=== PATIENT | female | born 1965 | race African-American/Black ===

== ENCOUNTER 2016-10-23 05:18 | Inpatient (IN) | payer MEDICARE, OTHER ==
--- NOTE | ~2016-10-23 | HP ---
History And Physical [address] [address] NAME: EKATERINA BARNES : [birth year] STATUS : ADM IN [facility]#: [id number] AGE: 51 ADM/REG DATE : 10/23/16 MR#: [id number] REPORT SERV DATE: 10/23/16 DICTATED BY: DATE: REPORT STATUS : Draft TRANSCRIBED BY: MODL DATE: 10/23/16 DATE OF ADMISSION: 10/23/2016 REASON FOR ADMISSION: Abscess, buttocks and perineal region. HISTORY OF PRESENT ILLNESS: Ms. Barnes is a 51-year-old black female with hidradenitis suppurativa; diabetes, multiple complications including retinopathy; end-stage renal disease, on dialysis, who presents to the emergency department with abscess, she states that started during her last hospitalization at [place]. She describes them as decubitus that her abscess on her buttocks is not in a pressure region, it is actually a subcutaneous abscess that starts on her right buttock and extends down into her labia, and then she has in the right perineal region and abscess there, I am not sure if that does extend all the way up from the other. Significant tenderness, no drainage. She denies any fevers or chills, just significant pain. No nausea, vomiting. No shortness of breath. White blood cell count is normal. She is not having any fever here. PAST MEDICAL HISTORY: Includes a recent hospitalization at [place] for altered mental status. Medications were changed and Psychiatry evaluation during the hospital stay. She has end-stage renal disease; type 2 diabetes; blind with retinopathy; hidradenitis; coronary artery disease; PAT; COPD; decubitus; atrial fibrillation, status post ablation; GI bleeding; and cholecystectomy. SOCIAL HISTORY: She is with supportive family. No tobacco or alcohol. FAMILY MEDICAL HISTORY: Strongly positive for end-stage renal disease, diabetes, and hypertension. ALLERGIES: HYDROCODONE, SYNTHROID, AND FISH PRODUCTS. MEDICATIONS AT HOME: Albuterol, Astepro, vitamin B, Rocaltrol, Tums, cefdinir, Klonopin, erythromycin, Neurontin, Imdur, Fosrenol, Toprol, Nitrostat, Protonix, promethazine, Zoloft, Ultram, and Coumadin. REVIEW OF SYSTEMS: 12-point review of systems obtained and negative with the exception of that in the HPI. PHYSICAL EXAMINATION: VITAL SIGNS: Temperature 98.1, blood pressure 146/63, pulse 93, respiratory rate 14, O2 saturation is 99%. GENERAL: This is a chronically ill-appearing black female. She is awake, alert, and oriented to self and place. HEENT: Normocephalic, atraumatic. Conjunctivae are clear. Sclerae are anicteric. Oral mucosa is dry. NECK: No lymphadenopathy. Neck veins flat. LUNGS: Respirations are even and unlabored. Breath sounds clear to auscultation. HEART: Rate is regular. No murmur, rub, or gallop. History And Physical [address] [address] NAME: EKATERINA BARNES : [birth year] STATUS : ADM IN [facility]#: [id number] AGE: 51 ADM/REG DATE : 10/23/16 MR#: [id number] REPORT SERV DATE: 10/23/16 DICTATED BY: DATE: REPORT STATUS : Draft TRANSCRIBED BY: HERACLIO DATE: 10/23/16 ABDOMEN: Soft and nontender. GENITALIA: To the right buttock, she has an abscess on the right side with significant tenderness. I am not sure that it does not extend and as on her right labia, there is also an abscess as well. EXTREMITIES: Lower extremities, no edema. SKIN: As above. NEURO: Generalized weakness. No focal deficits. Mood and affect, pleasant and appropriate. PERTINENT LABS AND X-RAYS: CBC with WBC 8.3, H and H 10 and 33, and platelets 224,000. Sodium 137, potassium 4.2, chloride 101, CO2 of 28, BUN of 60, creatinine of 9.6. Magnesium 2. Albumin of 2.3. IMAGING: She had a CT of the pelvis in the emergency room which showed subcutaneous tissue of the right buttock with low density consistent with subcutaneous abscess measuring 8 cm x 6 cm and an abscess surrounded by induration tracks medially to the cleft and extends to the perineum and the region of the anus, and there 2 or 3 focal areas, have appearance of ulceration versus skin folds. An area of induration in the right anterior abdominal wall measuring 7 x 5 x 1. IMPRESSION: 1. Buttock abscess. 2. Perineal abscess. 3. End-stage renal disease. 4. Diabetes. 5. Blindness. 6. Hidradenitis suppurativa. PLAN: Admit; antibiotics; surgical consult; dialysis today; check INR as it has not been done and she is on Coumadin; pain medicine. Further orders and recommendations pending clinical course. MALIK/HERACLIO DAHLIA Spencer / [id number] CC: Raad Pastor M.D.
--- NOTE | ~2016-10-23 | EGD ---
EGD REPORT [facility] [address] [place]. [address] NAME: NICOLE HARDING : [birth year] STATUS : DIS IN PAT#: [id number] AGE: 51 ADM/REG DATE : 10/23/16 MR#: [id number] REPORT SERV DATE: 11/14/16 DICTATED BY: IAIN GIFFORD DATE: 11/14/16 REPORT STATUS : Draft [facility]ANS[facility]IBED BY: [facility] DATE: 11/14/16 Endoscopy Center Patient Name: Nicole Harding Date of : 1965 Attending MD: IAIN GIFFORD MD Procedure Date No Time: 11/04/2016 Procedure: Colonoscopy Indications: Anemia Referring MD: JADIEL BARBOZA Medicines: Propofol per Anesthesia Complications: No immediate complications. Procedure: Pre-Anesthesia Assessment: - ASA Grade Assessment: IV - A patient with severe systemic disease that is a constant threat to life. After I obtained informed consent, the scope was passed under direct vision. Throughout the procedure, the patient's blood pressure, pulse, and oxygen saturations were monitored continuously. The CF [id number] was introduced through the anus and advanced to the cecum, identified by appendiceal orifice and ileocecal valve. The colonoscopy was performed without difficulty. The patient tolerated the procedure well. The quality of the bowel preparation was fair. Findings: The perianal exam was abnormal. Findings include multiple absesses around the anus. The colon (entire examined portion) appeared normal. A moderate amount of semi-solid stool was found in the ascending colon and in the cecum, interfering with visualization. Lavage of the area was performed using copious amounts of sterile water, resulting in incomplete clearance with continued poor visualization. A sessile polyp was found in the cecum. The polyp was 4 mm in size. The polyp was removed with a hot snare. Resection and retrieval were complete. Non-bleeding internal hemorrhoids were found during retroflexion and were mild, small and Grade I (internal hemorrhoids that do not prolapse). A hyperplastic polyp was found in the rectum. The polyp was 2 mm in size. Impression: - Multiple absesses around the anus found on perianal exam. - The entire examined colon is normal. - Stool in the ascending colon and in the cecum. - One 4 mm polyp in the cecum. Resected and retrieved. - Non-bleeding internal hemorrhoids. EGD REPORT [address] [address] NAME: NICOLE HARDING : [birth year] STATUS : DIS IN PAT#: [id number] AGE: 51 ADM/REG DATE : 10/23/16 MR#: [id number] REPORT SERV DATE: 11/14/16 DICTATED BY: IAIN GIFFORD DATE: 11/14/16 REPORT STATUS : Draft TRANSCRIBED BY: [employer] DATE: 11/14/16 - One 2 mm polyp in the rectum. - The bleeding was probably from the abscesses. Doubt it was from the hemorrhoids or polyps seen. Recommendation: - Await pathology results. - Return to previous diet. - Continue present medications. - Repeat colonoscopy in 1 year because the bowel preparation was suboptimal. - [facility]. Procedure Code(s): --- Professional --- 36152, Colonoscopy, flexible, proximal to splenic flexure; with removal of tumor(s), polyp(s), or other lesion(s) by snare technique Diagnosis Code(s): --- Professional --- K64.0, First degree hemorrhoids K62.1, Rectal polyp D12.0, Benign neoplasm of cecum D64.9, Anemia, unspecified CPT copyright 2013 [employer]. All rights reserved. The codes documented in this report are preliminary and upon racing board marker review may be revised to meet current compliance requirements. Iain Gifford MD IAIN GIFFORD MD 11/04/2016 11:18 AM This report has been signed electronically. Number of Addenda: 0 Note Initiated On: 11/04/2016 9:08 AM Scope Withdrawal Time 0 hours 9 minutes 52 seconds [address] [place] [address]
--- NOTE | ~2016-10-23 | EGD ---
EGD REPORT [facility] [address] [place] [address] NAME: NICOLE HARDING : [birth year] STATUS : DIS IN PAT#: [id number] AGE: 51 ADM/REG DATE : 10/23/16 MR#: [id number] REPORT SERV DATE: 11/14/16 DICTATED BY: IAIN GIFFORD DATE: 11/14/16 REPORT STATUS : Draft [facility] DATE: 11/14/16 Endoscopy Center Patient Name: Nicole Harding Date of : 1965 Attending MD: IAIN GIFFORD MD Procedure Date No Time: 11/04/2016 Procedure: Colonoscopy Indications: Anemia Referring MD: JADIEL BARBOZA Medicines: Propofol per Anesthesia Complications: No immediate complications. Procedure: Pre-Anesthesia Assessment: - ASA Grade Assessment: IV - A patient with severe systemic disease that is a constant threat to life. After I obtained informed consent, the scope was passed under direct vision. Throughout the procedure, the patient's blood pressure, pulse, and oxygen saturations were monitored continuously. The CF [id number] was introduced through the anus and advanced to the cecum, identified by appendiceal orifice and ileocecal valve. The colonoscopy was performed without difficulty. The patient tolerated the procedure well. The quality of the bowel preparation was fair. Findings: The perianal exam was abnormal. Findings include multiple absesses around the anus. The colon (entire examined portion) appeared normal. A moderate amount of semi-solid stool was found in the ascending colon and in the cecum, interfering with visualization. Lavage of the area was performed using copious amounts of sterile water, resulting in incomplete clearance with continued poor visualization. A sessile polyp was found in the cecum. The polyp was 4 mm in size. The polyp was removed with a hot snare. Resection and retrieval were complete. Non-bleeding internal hemorrhoids were found during retroflexion and were mild, small and Grade I (internal hemorrhoids that do not prolapse). A hyperplastic polyp was found in the rectum. The polyp was 2 mm in size. Impression: - Multiple absesses around the anus found on perianal exam. - The entire examined colon is normal. - Stool in the ascending colon and in the cecum. - One 4 mm polyp in the cecum. Resected and retrieved. - Non-bleeding internal hemorrhoids. EGD REPORT [address] [address] NAME: NCIOLE HARDING : [birth year] STATUS : DIS IN PAT#: [id number] AGE: 51 ADM/REG DATE : 10/23/16 MR#: [id number] REPORT SERV DATE: 11/14/16 DICTATED BY: IAIN GIFFORD DATE: 11/14/16 REPORT STATUS : Draft TRANSCRIBED BY: [employer] DATE: 11/14/16 - One 2 mm polyp in the rectum. - The bleeding was probably from the abscesses. Doubt it was from the hemorrhoids or polyps seen. Recommendation: - Await pathology results. - Return to previous diet. - Continue present medications. - Repeat colonoscopy in 1 year because the bowel preparation was suboptimal. - Return patient to [facility] care. Procedure Code(s): --- Professional --- 92369, Colonoscopy, flexible, proximal to splenic flexure; with removal of tumor(s), polyp(s), or other lesion(s) by snare technique Diagnosis Code(s): --- Professional --- K64.0, First degree hemorrhoids K62.1, Rectal polyp D12.0, Benign neoplasm of cecum D64.9, Anemia, unspecified CPT copyright 2013 [employer]. All rights reserved. The codes documented in this report are preliminary and upon surgical coder review may be revised to meet current compliance requirements. Iain Gifford MD IAIN GIFFORD MD 11/04/2016 11:18 AM This report has been signed electronically. Number of Addenda: 0 Note Initiated On: 11/04/2016 9:08 AM Scope Withdrawal Time 0 hours 9 minutes 52 seconds [address] [place] [address]
--- NOTE | ~2016-10-23 | EGD ---
EGD REPORT [facility] [address] [address] NAME: NICOLE HARDING : [birth year] STATUS : DIS IN PAT#: [id number] AGE: 51 ADM/REG DATE : 10/23/16 MR#: [id number] REPORT SERV DATE: 11/14/16 DICTATED BY: IAIN GIFFORD DATE: 11/14/16 REPORT STATUS : Draft [facility]: [facility] DATE: 11/14/16 Endoscopy Center Patient Name: Nicole Harding Date of : 1965 Attending MD: IAIN GIFFORD MD Procedure Date No Time: 11/04/2016 Procedure: Upper GI endoscopy Indications: Anemia Referring MD: SIRI SUTTON Medicines: Propofol per Anesthesia Complications: No immediate complications. Procedure: Pre-Anesthesia Assessment: - ASA Grade Assessment: IV - A patient with severe systemic disease that is a constant threat to life. After obtaining informed consent, the endoscope was passed under direct vision. Throughout the procedure, the patient's blood pressure, pulse, and oxygen saturations were monitored continuously. The GIF [id number] was introduced through the mouth, and advanced to the third part of duodenum. The upper GI endoscopy was accomplished without difficulty. The patient tolerated the procedure well. Findings: The examined esophagus was normal. A small hiatus hernia was present. as seen on retroflexion Diffuse mild inflammation characterized by congestion (edema) and erythema was found in the entire examined stomach. Multiple small sessile polyps with no bleeding and no stigmata of recent bleeding were found in the gastric body and in the gastric antrum. A few medium-sized sessile polyps with no bleeding were found in the duodenal bulb. A single 20 mm sessile polyp with no bleeding was found in the second part of the duodenum. Very near the ampulla. The polyp was removed with a hot snare. Resection was complete, but the polyp tissue was only partially retrieved the first large piece was lost down the third part and into down the fourth part and was not retrieved. The 3rd part of the duodenum was normal. Impression: - Normal esophagus. - Hiatus hernia. - Gastritis. - Multiple gastric polyps. - A few duodenal polyps. - A single duodenal polyp. Complete resection. Partial EGD REPORT [address] [address] NAME: NICOLE HARDING : [birth year] STATUS : DIS IN PAT#: [id number] AGE: 51 ADM/REG DATE : 10/23/16 MR#: [id number] REPORT SERV DATE: 11/14/16 DICTATED BY: IAIN GIFFORD DATE: 11/14/16 REPORT STATUS : Draft TRANSCRIBED BY: [employer] DATE: 11/14/16 retrieval the polyp was located near the papilla. - Normal 3rd part of the duodenum. - No real etiology of bleeding found Recommendation: - Await pathology results. - Continue present medications. - Return to previous diet. - Return patient to [facility] care. Procedure Code(s): --- Professional --- 38978, Esophagogastroduodenoscopy, flexible, transoral; with removal of tumor(s), polyp(s), or other lesion(s) by snare technique Diagnosis Code(s): --- Professional --- K44.9, Diaphragmatic hernia without obstruction or gangrene K29.70, Gastritis, unspecified, without bleeding K31.7, Polyp of stomach and duodenum D64.9, Anemia, unspecified CPT copyright 2013 [employer]. All rights reserved. The codes documented in this report are preliminary and upon outside sales review may be revised to meet current compliance requirements. Iain Gifford MD IAIN GIFFORD MD 11/04/2016 11:06 AM This report has been signed electronically. Number of Addenda: 0 Note Initiated On: 11/04/2016 9:07 AM Scope Withdrawal Time 0 hours 0 minutes 0 seconds [address] [place] [address]
--- NOTE | ~2016-10-23 | EGD ---
EGD REPORT [facility] [address] [address] NAME: EKATERINA BARNES : [birth year] STATUS : DIS IN PAT#: [id number] AGE: 51 ADM/REG DATE : 10/23/16 MR#: [id number] REPORT SERV DATE: 11/14/16 DICTATED BY: IAIN GIFFORD DATE: 11/14/16 REPORT STATUS : Draft TRANSCRIBED BY: [facility] DATE: 11/14/16 THIS EXAM WAS SENT IN ERROR
--- NOTE | ~2016-10-23 | DS ---
Discharge Summary [facility] [address] [place]. [address] NAME: EKATERINA BARNES : [birth year] STATUS : DIS IN PAT#: [id number] AGE: 51 ADM/REG DATE : 10/23/16 MR#: [id number] REPORT SERV DATE: 12/20/16 DICTATED BY: SIRI ZAMAN DATE: 12/19/16 REPORT STATUS : Draft TRANSCRIBED BY: HERACLIO DATE: 12/19/16 Data Collection from hospitalization DISCHARGE DIAGNOSES: 1. Hidradenitis suppurative with abscess of the abdomen and buttocks. 2. Acute blood loss anemia on chronic anemia. 3. Debility. 4. Diabetes mellitus. 5. Coronary artery disease. 6. End-stage renal disease. 7. Blind. 8. History of atrial fibrillation, status post ablation. 9. Chronic obstructive pulmonary disease. 10.Obstructive sleep apnea. CONSULTATIONS: Dr. Soniya Ashby and Dr. Balbir Rodríguez. PROCEDURES: 1. Incision and drainage of lower abdominal abscess and right and left perianal abscess and excision of right and left inguinal hidradenitis, 10/26/2016. 2. Upper GI endoscopy, 11/04/2016. 3. Colonoscopy, 11/04/2016. 4. CT scan of the pelvis with contrast, 10/23/2016. PATHOLOGY: Inguinal hernia sac-benign fibromembranous and adipose tissue with focal mesothelial hyperplasia with marked mixed inflammation and reactive changes with focal benign epithelialized area of skin and subcutaneous tissue. Duodenum biopsy of polyp- tubular adenoma without high-grade dysplasia. Cecum biopsy-tubular adenoma without high- grade dysplasia. DISCHARGE MEDICATIONS: Astepro two sprays nasally twice a day, Rocaltrol 0.5 mcg daily, Tums E-X 3000 mg three times a day, erythromycin 500 mg three times a day, Neurontin 600 mg twice a day, Imdur 30 mg with lunch, Fosrenol 1000 mg after meals, Toprol-XL 25 mg daily, Protonix 40 mg twice a day, Phenergan 50 mg before meals, Benzamycin gel as instructed, Zoloft 50 mg daily, Klonopin 0.5 mg at bedtime, Nitrostat 0.4 mg sublingually as needed, Johnston nasal spray two sprays nasally every four hours as needed, Ultram 100 mg three times a day as needed, Ventolin one puff via inhaler every four hours as needed, Benzamycin one application topically twice a day as instructed, Triphrocaps one capsule daily, Percocet 10/325 one to two tablets every eight hours as needed for pain, Procrit 15,000 units IV with hemodialysis as instructed. CONDITION ON DISCHARGE: Stable. DISPOSITION: The patient was discharged to [facility] on a renal diet with activities as instructed. HOSPITAL COURSE: This is a 51-year-old female who has hidradenitis suppurative, diabetes, and multiple complications including retinopathy, end-stage renal disease on dialysis who Discharge Summary [facility] [address] [place]. [address] NAME: EKATERINA BARNES : [birth year] STATUS : DIS IN PAT#: [id number] AGE: 51 ADM/REG DATE : 10/23/16 MR#: [id number] REPORT SERV DATE: 12/20/16 DICTATED BY: SIRI ZAMAN DATE: 12/19/16 REPORT STATUS : Draft TRANSCRIBED BY: HERACLIO DATE: 12/19/16 presented to the emergency department with abscess. She said this began during her last hospitalization at [place]. She describes them as decubitus and that her abscess on her buttocks was not in a pressure region. It was actually a subcutaneous abscess that starts on her right buttock and extends down into her labia, and then she has an abscess in the right perineal region. We were not sure if that did extend all the way up from the other. There was significant tenderness but no drainage. White blood cell count was normal. She had no fever. She was admitted to the hospital at this time for further evaluation and treatment. Upon admission, antibiotics were started. Dialysis therapy was going to be performed. INR level was going to be checked. A CT scan of the pelvis with contrast was performed. The following day, the patient said her pain was better controlled. White blood cell count was 9.4. Creatinine level was 6.82. On 10/25/2016, she did have some anxiety. Seroquel was given. She was seen by Dr. Balbir Rodríguez. The patient has had multiple abscesses in the lower abdomen, inguinal region, and buttock area. The inguinal appeared to be excessive hidradenitis. She has evidence of infection, and it was felt that drainage and debridement were indicated. Hemodialysis therapy was performed. On 10/26/2016, she was taken to the operating room where she underwent the above-mentioned procedure. She tolerated this well, and there were no complications. INR level was 1.6 after being given vitamin K. She did complain of buttock pain. On postop day 1, she did complain of pain. Hemodialysis therapy continued. Coumadin was on hold on 10/28/2016, and it has remained in place. Her pain was controlled. She was eating well. She did have a bowel movement. On 11/02/2016, she did complain of bottom pain. Cultures had revealed sparse staph. She had no edema. Her lungs were clear. Antibiotics were continued. INR level was 1.7. On the , she had some bleeding that was superficial in the left groin. This was controlled with pressure. She had no new complaints. EPO and iron were given. A GI consult was requested. She was evaluated by Physical Therapy. On the , she was seen by Dr. Soniya Ashby regarding anemia. The patient reports that she had bleeding from these abscesses and awoke being wet in the bed. She is legally blind. INR level was 2.4. She denies any known history of overt melena, hematochezia, or rectal bleeding. She denied any nausea or vomiting. Liver enzymes were normal. The anemia was of unclear etiology. The patient suspected her anemia was from her multiple abscesses near her sacrum. There were no overt signs of GI bleeding. She had a colonoscopy in 2013 which revealed ischemic colitis. She denies abdominal pain and had no other GI symptoms. We would consider performing an EGD and colonoscopy. The patient was not accepting any blood products because she is a [employer]. INR level would need to be less than or equal to 1.6 to be able to perform any kind of endoscopy. On 11/04/2016, wound care continued. O2 saturation was 99% on room air. She had no dyspnea. The patient refused packed red blood cells. She was taken to the endoscopic suite by Dr. Mg Steen where she underwent upper endoscopy. She had a normal esophagus. There was a hiatal hernia and gastritis. She had multiple gastric polyps. There were a few duodenal polyps. There was a single duodenal polyp with complete resection. Partial retrieval was performed as the polyp was located near the papilla. There was a normal third part of the duodenum. There was no real etiology of bleeding found. Colonoscopy was also performed. There were multiple abscesses around the anus found on perianal exam. The Discharge Summary [facility] [address] [place]. [address] NAME: EKATERINA BARNES : [birth year] STATUS : DIS IN PAT#: [id number] AGE: 51 ADM/REG DATE : 10/23/16 MR#: [id number] REPORT SERV DATE: 12/20/16 DICTATED BY: SIRI ZAMAN DATE: 12/19/16 REPORT STATUS : Draft TRANSCRIBED BY: [employer]L DATE: 12/19/16 entire examined colon was normal. There was stool in the ascending colon and in the cecum. There was a 4 mm polyp in the cecum that was resected and retrieved. There were nonbleeding internal hemorrhoids. There was a 2 mm polyp in the rectum. The next day, her abdomen was soft and nontender. She was off Coumadin at this time. Over the next several days, she continued to do well. Hemodialysis therapy continued. H and H continued to decrease. There was no evidence of GI bleed. The patient continued to refuse blood products. Discharge planning was performed. She was encouraged to participate with Physical Therapy. IV Dilaudid was discontinued. On 11/09/2016, she had no new complaints. She was alert and cooperative. She had no edema. Procrit was continued. She was off Coumadin for now. Discharge instructions were given. Due to her improved and stable condition, she was discharged to [facility] with the above-stated instructions. Information collected by: Berta Bucio I submit the above information as my discharge summary. TG/HERACLIO Siri Zaman M.D. / [id number] CC: Balbir Rodríguez Jr., M.D. [facility] MD Mono Bettencourt M.D.
--- NOTE | ~2016-10-23 | CN ---
Consultation Report [facility] [address]. [address] NAME: EKATERINA HARDING : 69 STATUS : ADM IN [facility]#: [id number] AGE: 51 ADM/REG DATE : 10/23/16 MR#: [id number] REPORT SERV DATE: 11/03/16 DICTATED BY: JADIEL ESCALANTE DATE: 11/02/16 REPORT STATUS : Draft TRANSCRIBED BY: MODL DATE: 11/02/16 GI CONSULTATION DATE OF CONSULTATION: 11/02/2016 REASON FOR CONSULTATION: Anemia. HISTORY OF PRESENT ILLNESS: Ms. 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 She also had a recent hospitalization at [facility] [place] for this. She reports that she has had bleeding from these abscesses and woke up wet in the bed, but as she is legally blind, she could discern the etiology of this. Her hemoglobin and hematocrit have slightly been decreasing, and although she was initially 10 and 33 respectively, she is now 4.8 and 15.4 respectively. Platelets are 290. INR is 2.4. She denies any known overt melena nor any hematochezia or rectal bleeding. She denies any nausea or vomiting. PAST MEDICAL HISTORY: End-stage renal disease, on hemodialysis; hidradenitis, suppurativa; diabetes with end-organ damage and retinopathy; coronary artery disease; peripheral arterial disease; COPD; atrial fibrillation, status post ablation. PAST SURGICAL HISTORY: Cardiac ablation, cholecystectomy, surgical treatment for abscesses. FAMILY HISTORY: End-stage renal disease, diabetes, hypertension. SOCIAL HISTORY: Denies any smoking, alcohol, or drug use. MEDICATIONS: Reviewed. ALLERGIES: REVIEWED. PHYSICAL EXAMINATION: VITAL SIGNS: Patient is afebrile. Her vital signs are stable. GENERAL: The patient is awake, alert, oriented x3, well developed, well nourished, no acute distress. Exhibits some tangential thinking. HEENT: Atraumatic, normocephalic. Legally blind. Mucous membranes moist. CARDIAC: S1, S2. CHEST: Clear. ABDOMEN: Soft, obese, nontender, nondistended. Bowel sounds normoactive. LABORATORY DATA: Showed WBC 9.8, hemoglobin 4.8, hematocrit 15.4, platelets 290. Sodium 142, potassium 5.4, chloride 107, bicarb 27, BUN 38, creatinine 5.7, glucose 138. INR is 2.4. Liver enzymes were normal. Consultation Report [place] [id number] [place]. [address] NAME: EKATERINA HARDING : [birth year] STATUS : ADM IN [facility]#: [id number] AGE: 51 ADM/REG DATE : 10/23/16 MR#: [id number] REPORT SERV DATE: 11/03/16 DICTATED BY: JADIEL ESCALANTE DATE: 11/02/16 REPORT STATUS : Draft TRANSCRIBED BY: HERACLIO DATE: 11/02/16 IMPRESSION AND PLAN: Anemia, unclear etiology. Although the patient suspects it is from her multiple abscesses near her sacrum. No overt signs of GI bleeding. The patient had a colonoscopy by Dr. Ghosh in 2013, which showed ischemic colitis. She denies any abdominal pain and no other GI symptoms. Would consider doing an EGD and colonoscopy. As patient is not expressing any blood products because she is a [employer], however, would need her INR to be less than or equal to 1.6 to perform any kind of endoscopy and this was discussed with the patient. Questions and concerns were addressed. EDYTA/HERACLIO Jadiel Escalante MD / [id number] CC: Raad Pastor M.D.
--- NOTE | ~2016-10-23 | EGD ---
EGD REPORT [facility] [address] [place] [address] NAME: NICOLE HARDING : [birth year] STATUS : DIS IN PAT#: [id number] AGE: 51 ADM/REG DATE : 10/23/16 MR#: [id number] REPORT SERV DATE: 11/14/16 DICTATED BY: IAIN GIFFORD DATE: 11/14/16 REPORT STATUS : Draft TRANSCRIBED BY: [facility] DATE: 11/14/16 Endoscopy Center Patient Name: Nicole Harding Date of : 1965 Attending MD: IAIN GIFFORD MD Procedure Date No Time: 11/04/2016 Procedure: Upper GI endoscopy Indications: Anemia Referring MD: SIRI SUTTON Medicines: Propofol per Anesthesia Complications: No immediate complications. Procedure: Pre-Anesthesia Assessment: - ASA Grade Assessment: IV - A patient with severe systemic disease that is a constant threat to life. After obtaining informed consent, the endoscope was passed under direct vision. Throughout the procedure, the patient's blood pressure, pulse, and oxygen saturations were monitored continuously. The GIF [id number] was introduced through the mouth, and advanced to the third part of duodenum. The upper GI endoscopy was accomplished without difficulty. The patient tolerated the procedure well. Findings: The examined esophagus was normal. A small hiatus hernia was present. as seen on retroflexion Diffuse mild inflammation characterized by congestion (edema) and erythema was found in the entire examined stomach. Multiple small sessile polyps with no bleeding and no stigmata of recent bleeding were found in the gastric body and in the gastric antrum. A few medium-sized sessile polyps with no bleeding were found in the duodenal bulb. A single 20 mm sessile polyp with no bleeding was found in the second part of the duodenum. Very near the ampulla. The polyp was removed with a hot snare. Resection was complete, but the polyp tissue was only partially retrieved the first large piece was lost down the third part and into down the fourth part and was not retrieved. The 3rd part of the duodenum was normal. Impression: - Normal esophagus. - Hiatus hernia. - Gastritis. - Multiple gastric polyps. - A few duodenal polyps. - A single duodenal polyp. Complete resection. Partial EGD REPORT [address] [address] NAME: NICOLE HARDING : [birth year] STATUS : DIS IN PAT#: [id number] AGE: 51 ADM/REG DATE : 10/23/16 MR#: [id number] REPORT SERV DATE: 11/14/16 DICTATED BY: IAIN GIFFORD DATE: 11/14/16 REPORT STATUS : Draft TRANSCRIBED BY: [employer] DATE: 11/14/16 retrieval the polyp was located near the papilla. - Normal 3rd part of the duodenum. - No real etiology of bleeding found Recommendation: - Await pathology results. - Continue present medications. - Return to previous diet. - [facility] patient to [facility] for [facility] care. Procedure Code(s): --- Professional --- 71281, Esophagogastroduodenoscopy, flexible, transoral; with removal of tumor(s), polyp(s), or other lesion(s) by snare technique Diagnosis Code(s): --- Professional --- K44.9, Diaphragmatic hernia without obstruction or gangrene K29.70, Gastritis, unspecified, without bleeding K31.7, Polyp of stomach and duodenum D64.9, Anemia, unspecified CPT copyright 2013 [employer]. All rights reserved. The codes documented in this report are preliminary and upon creel selector review may be revised to meet current compliance requirements. Iain Gifford MD IAIN GIFFORD MD 11/04/2016 11:06 AM This report has been signed electronically. Number of Addenda: 0 Note Initiated On: 11/04/2016 9:07 AM Scope Withdrawal Time 0 hours 0 minutes 0 seconds [address] [place] [address]
--- NOTE | ~2016-10-23 | OP ---
Record Of Operation [facility] [address] [place]. [address] NAME: EKATERINA BARNES : [birth year] STATUS : ADM IN [facility]#: [id number] AGE: 51 ADM/REG DATE : 10/23/16 MR#: [id number] REPORT SERV DATE: 10/27/16 DICTATED BY: IMTIAZ GARCIA JR. DATE: 10/26/16 REPORT STATUS : Draft TRANSCRIBED BY: HERACLIO DATE: 10/26/16 DATE OF PROCEDURE: SURGEON: Imtiaz Garcia M.D. DIESEL ENGINE TESTER: Ingrid Kimball. PROCEDURE: Incision and drainage of lower abdominal abscess and right and left perianal abscess and excision of right and left inguinal hidradenitis. PREOPERATIVE DIAGNOSIS: Multiple abscesses/hidradenitis, lower abdomen, groin, and perianal regions. POSTOPERATIVE DIAGNOSIS: Multiple abscesses/hidradenitis, lower abdomen, groin, and perianal regions. ANESTHESIA: General. INDICATIONS: The patient has had multiple abscesses in the lower abdomen, inguinal region, and buttock area. The inguinal appears to be excessive hidradenitis. She has evidence of infection and appropriate drainage and debridement is indicated. FINDINGS: There was an abscess in the lower abdomen, this was drained of purulent material. There were areas of hidradenitis in the right and left groin, they were excised, and there were right and left buttock abscesses. The post debridement/drainage wound sizes for the lower abdomen were 6 x 0.5 x 4 cm, the right groin 10.5 x 2.5 x 1.5, the left groin 12 x 1 x 1.5, the right buttock 3 x 1 x 3.5, and the left buttock 3 x 0.5 x 2.5. Cultures were taken. DESCRIPTION OF PROCEDURE: With adequate general anesthesia, the patient was placed in the lithotomy position, the perineum area was prepped and draped sterilely. With a 15 blade, an incision was made overlying the area of abscess in the lower abdomen and right and left buttock, these were probed, unroofed, and cavities all explored and drained. Then, skin and subcutaneous tissue were excised over the right and left inguinal region to remove the area of hidradenitis removing areas of fluctuance and induration. Hemostasis was assured with electrocautery and Surgicel fibrillar. Once we irrigated with pulse lavage inside parts sales with 6 L of saline until clear, cultures for the lower abdomen were taken. The wounds were all then packed with 1-inch iodoform gauze covered with sterile ABD pads. She left the operating room in satisfactory condition. ESTIMATED BLOOD LOSS: 50 mL. BARBARA/HERACLIO Record Of [address] [place]. [address] NAME: EKATERINA BARNES : [birth year] STATUS : ADM IN [facility]#: [id number] AGE: 51 ADM/REG DATE : 10/23/16 MR#: [id number] REPORT SERV DATE: 10/27/16 DICTATED BY: IMTIAZ GARCIA JR. DATE: 10/26/16 REPORT STATUS : Draft TRANSCRIBED BY: HERACLIO DATE: 10/26/16 Imtiaz Garcia Jr., M.D. / [id number] CC: Raad Pastor M.D.
[~2016-10-23 05:18] MED LIST: ALBUTEROL5 INH; ALLEGRA PO; AMB10 PO; AMB5 PO; ANTIBIOTIC; APRES50 PO; ASA5GR PO; ASAB PO; ASTEPRO0.15 % NAS; BACTROCR TOP; BACTRONASA NAS; BACTRONASA TOP; BENZACLIN TOP; BIST PO; CALCITRIOL; CARTIA XT120 MG/24 PO; CAT3 PO; COUMADIN7.5 MG PO; DIL2TAB PO; DILT-XR240 MG PO; DIOV160 PO; ERY-TAB500 MG PO; FOSRENOL1000 MG PO; GLUCOTRO10 PO; GLUCOTROL5 PO; HUMALOG; HUMALOG PEN; HUMALOG SC; HUMALOGMIX SC; HUMALOGPEN SC; IMDUR30 PO; IMDUR60 PO; ISOSORBIDE; K500 PO; LANTUS SC; LOP100 PO; LOP50 PO; MCZ25 PO; MULTIPLE VIT PO; NASAL SPRAY NAS; NEPHRO PO; NEUR600 PO; NITROSTAT0.4 MG SL; NTG150 SL; PR25 PO; PROAIR HFA INH; PROTONIX PO; PROVHFA INH; REG PO; ROCALTROL0.5 MCG PO; SENSIPAR30 M1 OR; SENSIPAR30 MG OR; SENSIPAR60 MG OR; SENSIPAR60 MG PO; SINGULAIR1 PO; SUCR PO; TOPXL25 PO; TUMS E-X750 M2 PO; ULTRAM50 PO; VYTORIN 10/10 T1 TAB PO; ZOCOR10 PO; ZOCOR5 MG PO; ZOL50 PO
[2016-10-23 06:06] LABS: BASOPHILS 0.6 %; BASOPHILS ABSOLUTE 0.05 10/3/uL (0.0-0.16); EOSINOPHILS 1.9 %; EOSINOPHILS ABSOLUTE 0.16 10/3/uL (0.0-0.53); HEMOGLOBIN 10.9 g/dL (12.0-16.0); IMMATURE GRANULOCYTES 0.2 %; IMMATURE GRANULOCYTES ABSOLUTE 0.02 10/3/uL (0.0-0.11); LYMPHOCYTES 15.6 %; LYMPHOCYTES ABSOLUTE 1.31 10/3/uL (0.67-4.30); MEAN CORPUS HGB CONC 31.5 g/dL (32.0-36.0); MEAN CORPUSCULAR HEMOGLOB 28.6 pg (26.0-34.0); MEAN PLATELET VOLUME 10.2 fL (9.2-13.0); MONOCYTES 6.2 %; MONOCYTES ABSOLUTE 0.52 10/3/uL (0.21-1.20); NEUTROPHILS 75.5 %; NEUTROPHILS ABSOLUTE 6.32 10/3/uL (2.02-8.40); PLATELET COUNT 214 10/3/uL (150-400); RBC DISTRIBUTION WIDTH 17.4 % (12.0-16.0); RED CELL COUNT 3.81 10/6/uL (4.0-5.6); WHITE BLOOD CELLS 8.4 10/3/uL (4.5-10.5)
[2016-10-23 06:07] LABS: ER CBC TAT 0 Hrs 25 Mins; HEMATOCRIT 34.6 % (36.0-48.0); MANUAL DIFF NO %; MEAN CORPUSCULAR VOLUME 90.8 fL (80-100)
[2016-10-23 06:12] LABS: A/G RATIO 0.4 (0.7-1.9); ALBUMIN 2.5 G/DL (3.5-5.0); ALKALINE PHOSPHATASE 104 U/L (45-117); BUN (BLOOD UREA NITROGEN) 57 MG/DL (6-23); CALCIUM, SERUM 8.2 MG/DL (8.5-10.4); CHLORIDE, SERUM 103 MMOL/L (96-112); CO2 (CARBON DIOXIDE) 27 MMOL/L (24-34); CREATININE 9.72 MG/DL (0.55-1.02); GFR AFRICAN AMERICAN 5 ML/MIN (>=60); GFR NON AFRICAN AMERICAN 4 ML/MIN (>=60); GLOBULIN 5.8 G/DL (2.5-4.1); GLUCOSE, SERUM 180 MG/DL (60-99); LACTATE 0.9 MMOL/L (0.3-2.4); POTASSIUM, SERUM 4.2 MMOL/L (3.5-5.3); SGOT(AST) 17 U/L (5-40); SGPT(ALT) 15 U/L (5-65); SODIUM, SERUM 142 MMOL/L (135-148); TOTAL BILIRUBIN 0.3 MG/DL (0-1.2); TOTAL PROTEIN 8.3 G/DL (6.0-8.5)
[2016-10-23 06:16] LABS: INTERNATIONAL NORMAL RATI 4.1 UNITS (-); PARTIAL THROMBO TIME 71.1 SEC (22.5-37.2)
[2016-10-23 06:17] LABS: PROTIME (NOT ORD) 39.5 SEC (12.0-14.5)
[2016-10-23 07:05] LABS: PROCALCITONIN 0.33 ng/mL (<0.5)
[2016-10-23] MEDS ORDERED: ASTEPRO0.15 % NAS (07:39)
[2016-10-23] MEDS ORDERED: BENZAMYCIN TOP (08:30)
[2016-10-23] MEDS ORDERED: OMNICEF300 PO (08:30)
[2016-10-23] MEDS ORDERED: TRIPHROCAPS PO (08:31)
[2016-10-23] MEDS ORDERED: KLONO5 PO (08:31)
[2016-10-23] MEDS ORDERED: TOPXL25 PO (08:31)
[2016-10-23] MEDS ORDERED: IMDUR30 PO (08:31)
[2016-10-23] MEDS ORDERED: TUMS E-X750 M2 PO (08:31)
[2016-10-23] MEDS ORDERED: ERY500 PO (08:32)
[2016-10-23] MEDS ORDERED: NEUR600 PO (08:32)
[2016-10-23] MEDS ORDERED: COUMADIN7.5 MG PO (08:32)
[2016-10-23] MEDS ORDERED: PR25 PO (08:32)
[2016-10-23] MEDS ORDERED: OCEAN NAS (08:33)
[2016-10-23] MEDS ORDERED: PROTONIX PO (08:33)
[2016-10-23] MEDS ORDERED: ULTRAM50 PO (08:33)
[2016-10-23] MEDS ORDERED: ZOL50 PO (08:33)
[2016-10-23] MEDS ORDERED: VENTOLIN HFA INH (08:34)
[2016-10-23] MEDS ORDERED: NITROSTAT0.4 MG SL (08:34)
[2016-10-23] MEDS ORDERED: FOSRENOL1000 MG PO (08:34)
[2016-10-23] MEDS ORDERED: ROCALTROL0.5 MCG PO (08:35)
[2016-10-23 09:54] LABS: BASOPHILS 0.2 %; BASOPHILS ABSOLUTE 0.02 10/3/uL (0.0-0.16); EOSINOPHILS 1.9 %; EOSINOPHILS ABSOLUTE 0.16 10/3/uL (0.0-0.53); HEMATOCRIT 33.6 % (36.0-48.0); HEMOGLOBIN 10.5 g/dL (12.0-16.0); IMMATURE GRANULOCYTES 0.5 %; IMMATURE GRANULOCYTES ABSOLUTE 0.04 10/3/uL (0.0-0.11); LYMPHOCYTES ABSOLUTE 1.33 10/3/uL (0.67-4.30); MANUAL DIFF NO %; MEAN CORPUS HGB CONC 31.3 g/dL (32.0-36.0); MEAN CORPUSCULAR HEMOGLOB 28.6 pg (26.0-34.0); MEAN CORPUSCULAR VOLUME 91.6 fL (80-100); MEAN PLATELET VOLUME 10.5 fL (9.2-13.0); MONOCYTES ABSOLUTE 0.58 10/3/uL (0.21-1.20); NEUTROPHILS 74.4 %; NEUTROPHILS ABSOLUTE 6.18 10/3/uL (2.02-8.40); PLATELET COUNT 224 10/3/uL (150-400); RBC DISTRIBUTION WIDTH 17.4 % (12.0-16.0); RED CELL COUNT 3.67 10/6/uL (4.0-5.6); WHITE BLOOD CELLS 8.3 10/3/uL (4.5-10.5)
[2016-10-23 10:08] LABS: ALBUMIN 2.3 G/DL (3.5-5.0); BUN (BLOOD UREA NITROGEN) 60 MG/DL (6-23); CALCIUM, SERUM 8.1 MG/DL (8.5-10.4); CHLORIDE, SERUM 101 MMOL/L (96-112); CO2 (CARBON DIOXIDE) 28 MMOL/L (24-34); CREATININE 9.61 MG/DL (0.55-1.02); GFR AFRICAN AMERICAN 5 ML/MIN (>=60); GFR NON AFRICAN AMERICAN 4 ML/MIN (>=60); GLUCOSE, SERUM 152 MG/DL (60-99); PHOSPHORUS, SERUM 4.1 MG/DL (2.5-4.5); SODIUM, SERUM 137 MMOL/L (135-148)
[2016-10-23 10:11] LABS: POTASSIUM, SERUM 4.2 MMOL/L (3.5-5.3)
[2016-10-23 11:40] LABS: HEPATITIS B SURFACE ANTIGEN NON-REACTIVE (NON-REACT)
[2016-10-23 12:05] LABS: HEPATITIS C ANTIBODY NON-REACTIVE (NON-REACT)
[2016-10-23 12:06] LABS: HEPATITIS B CORE AB IGM NON-REACTIVE (NON-REAC)
[2016-10-23 12:07] LABS: HIV COMBO NON-REACTIVE (NON REAC)
[2016-10-23 12:08] LABS: HEP A ANTIBODY IGM NON-REACTIVE (NON-REACT)
[2016-10-24 06:57] LABS: INTERNATIONAL NORMAL RATI 4.5 UNITS (-)
[2016-10-24 06:58] LABS: PROTIME (NOT ORD) 42.3 SEC (12.0-14.5)
[2016-10-24 06:59] LABS: BASOPHILS 0.3 %; BASOPHILS ABSOLUTE 0.03 10/3/uL (0.0-0.16); EOSINOPHILS 2.6 %; EOSINOPHILS ABSOLUTE 0.24 10/3/uL (0.0-0.53); IMMATURE GRANULOCYTES 0.3 %; IMMATURE GRANULOCYTES ABSOLUTE 0.03 10/3/uL (0.0-0.11); LYMPHOCYTES 14.1 %; LYMPHOCYTES ABSOLUTE 1.32 10/3/uL (0.67-4.30); MANUAL DIFF NO %; MEAN CORPUS HGB CONC 31.4 g/dL (32.0-36.0); MEAN CORPUSCULAR HEMOGLOB 28.6 pg (26.0-34.0); MEAN CORPUSCULAR VOLUME 91.1 fL (80-100); MEAN PLATELET VOLUME 10.1 fL (9.2-13.0); MONOCYTES ABSOLUTE 0.56 10/3/uL (0.21-1.20); NEUTROPHILS 76.7 %; NEUTROPHILS ABSOLUTE 7.18 10/3/uL (2.02-8.40); PLATELET COUNT 228 10/3/uL (150-400); RBC DISTRIBUTION WIDTH 17.7 % (12.0-16.0); RED CELL COUNT 3.84 10/6/uL (4.0-5.6); WHITE BLOOD CELLS 9.4 10/3/uL (4.5-10.5)
[2016-10-24 07:08] LABS: ALBUMIN 2.2 G/DL (3.5-5.0); CHLORIDE, SERUM 102 MMOL/L (96-112); CO2 (CARBON DIOXIDE) 27 MMOL/L (24-34); GLUCOSE, SERUM 133 MG/DL (60-99); PHOSPHORUS, SERUM 3.3 MG/DL (2.5-4.5); SODIUM, SERUM 136 MMOL/L (135-148)
[2016-10-24 07:10] LABS: BUN (BLOOD UREA NITROGEN) 41 MG/DL (6-23); CREATININE 6.82 MG/DL (0.55-1.02); GFR AFRICAN AMERICAN 8 ML/MIN (>=60); GFR NON AFRICAN AMERICAN 6 ML/MIN (>=60); POTASSIUM, SERUM 4.7 MMOL/L (3.5-5.3)
[2016-10-25 15:03] LABS: BASOPHILS 0.3 %; BASOPHILS ABSOLUTE 0.03 10/3/uL (0.0-0.16); EOSINOPHILS 1.8 %; HEMATOCRIT 34.4 % (36.0-48.0); HEMOGLOBIN 10.9 g/dL (12.0-16.0); IMMATURE GRANULOCYTES 0.4 %; IMMATURE GRANULOCYTES ABSOLUTE 0.04 10/3/uL (0.0-0.11); LYMPHOCYTES ABSOLUTE 1.41 10/3/uL (0.67-4.30); MEAN CORPUS HGB CONC 31.7 g/dL (32.0-36.0); MEAN CORPUSCULAR HEMOGLOB 28.5 pg (26.0-34.0); MEAN CORPUSCULAR VOLUME 90.1 fL (80-100); MEAN PLATELET VOLUME 9.8 fL (9.2-13.0); MONOCYTES 5.6 %; MONOCYTES ABSOLUTE 0.61 10/3/uL (0.21-1.20); NEUTROPHILS 78.9 %; NEUTROPHILS ABSOLUTE 8.53 10/3/uL (2.02-8.40); PLATELET COUNT 225 10/3/uL (150-400); RBC DISTRIBUTION WIDTH 17.5 % (12.0-16.0); RED CELL COUNT 3.82 10/6/uL (4.0-5.6); WHITE BLOOD CELLS 10.8 10/3/uL (4.5-10.5)
[2016-10-25 15:04] LABS: MANUAL DIFF NO %
[2016-10-25 15:22] LABS: PROTIME (NOT ORD) 22.2 SEC (12.0-14.5)
[2016-10-25 15:24] LABS: ALBUMIN 2.5 G/DL (3.5-5.0); CALCIUM, SERUM 8.5 MG/DL (8.5-10.4); CHLORIDE, SERUM 103 MMOL/L (96-112); CO2 (CARBON DIOXIDE) 26 MMOL/L (24-34); CREATININE 6.88 MG/DL (0.55-1.02); GFR AFRICAN AMERICAN 7 ML/MIN (>=60); GFR NON AFRICAN AMERICAN 6 ML/MIN (>=60); GLUCOSE, SERUM 123 MG/DL (60-99); PHOSPHORUS, SERUM 3.7 MG/DL (2.5-4.5); POTASSIUM, SERUM 4.5 MMOL/L (3.5-5.3); SODIUM, SERUM 139 MMOL/L (135-148)
[2016-10-25 15:25] LABS: BUN (BLOOD UREA NITROGEN) 49 MG/DL (6-23)
[2016-10-25 17:10] LABS: PARTIAL THROMBO TIME 53.2 SEC (22.5-37.2)
[2016-10-26 06:59] LABS: INTERNATIONAL NORMAL RATI 1.6 UNITS (-); PROTIME (NOT ORD) 19.2 SEC (12.0-14.5)
[2016-10-26 09:46] LABS: BASOPHILS 0.3 %; BASOPHILS ABSOLUTE 0.03 10/3/uL (0.0-0.16); EOSINOPHILS ABSOLUTE 0.19 10/3/uL (0.0-0.53); HEMATOCRIT 32.6 % (36.0-48.0); HEMOGLOBIN 10.2 g/dL (12.0-16.0); IMMATURE GRANULOCYTES 0.3 %; IMMATURE GRANULOCYTES ABSOLUTE 0.03 10/3/uL (0.0-0.11); LYMPHOCYTES 16.9 %; LYMPHOCYTES ABSOLUTE 1.59 10/3/uL (0.67-4.30); MANUAL DIFF NO %; MEAN CORPUS HGB CONC 31.3 g/dL (32.0-36.0); MEAN CORPUSCULAR HEMOGLOB 28.3 pg (26.0-34.0); MEAN CORPUSCULAR VOLUME 90.3 fL (80-100); MEAN PLATELET VOLUME 10.2 fL (9.2-13.0); MONOCYTES 6.7 %; MONOCYTES ABSOLUTE 0.63 10/3/uL (0.21-1.20); NEUTROPHILS 73.8 %; NEUTROPHILS ABSOLUTE 6.92 10/3/uL (2.02-8.40); PLATELET COUNT 254 10/3/uL (150-400); RBC DISTRIBUTION WIDTH 17.9 % (12.0-16.0); RED CELL COUNT 3.61 10/6/uL (4.0-5.6); WHITE BLOOD CELLS 9.4 10/3/uL (4.5-10.5)
[2016-10-26 09:56] LABS: BUN (BLOOD UREA NITROGEN) 42 MG/DL (6-23); CALCIUM, SERUM 7.8 MG/DL (8.5-10.4); CHLORIDE, SERUM 103 MMOL/L (96-112); SODIUM, SERUM 138 MMOL/L (135-148)
[2016-10-26 10:13] LABS: CO2 (CARBON DIOXIDE) 25 MMOL/L (24-34); CREATININE 6.71 MG/DL (0.55-1.02); GFR AFRICAN AMERICAN 8 ML/MIN (>=60); GFR NON AFRICAN AMERICAN 7 ML/MIN (>=60); POTASSIUM, SERUM 5.1 MMOL/L (3.5-5.3)
[2016-10-26 10:14] LABS: A/G RATIO 0.4 (0.7-1.9); ALBUMIN 2.3 G/DL (3.5-5.0); ALKALINE PHOSPHATASE 91 U/L (45-117); DIRECT BILIRUBIN < 0.1 MG/DL (0.0-0.4); GLOBULIN 5.5 G/DL (2.5-4.1); GLUCOSE, SERUM 80 MG/DL (60-99); INDIRECT BILIRUBIN(NOT ORDER) 0.2 MG/DL (0.1-0.9); SGOT(AST) 18 U/L (5-40); SGPT(ALT) 18 U/L (5-65); TOTAL BILIRUBIN 0.3 MG/DL (0-1.2); TOTAL PROTEIN 7.8 G/DL (6.0-8.5)
[2016-10-26 18:40] LABS: BASOPHILS 1.4 %; BASOPHILS ABSOLUTE 0.16 10/3/uL (0.0-0.16); EOSINOPHILS 2.1 %; EOSINOPHILS ABSOLUTE 0.24 10/3/uL (0.0-0.53); HEMATOCRIT 33.4 % (36.0-48.0); HEMOGLOBIN 10.6 g/dL (12.0-16.0); IMMATURE GRANULOCYTES 1.7 %; LYMPHOCYTES ABSOLUTE 1.49 10/3/uL (0.67-4.30); MEAN CORPUS HGB CONC 31.7 g/dL (32.0-36.0); MEAN CORPUSCULAR HEMOGLOB 28.5 pg (26.0-34.0); MEAN CORPUSCULAR VOLUME 89.8 fL (80-100); MEAN PLATELET VOLUME 10.5 fL (9.2-13.0); MONOCYTES 8.5 %; MONOCYTES ABSOLUTE 0.97 10/3/uL (0.21-1.20); NEUTROPHILS 73.3 %; NEUTROPHILS ABSOLUTE 8.39 10/3/uL (2.02-8.40); PLATELET COUNT 224 10/3/uL (150-400); RBC DISTRIBUTION WIDTH 17.9 % (12.0-16.0); RED CELL COUNT 3.72 10/6/uL (4.0-5.6); WHITE BLOOD CELLS 11.5 10/3/uL (4.5-10.5)
[2016-10-26 18:53] LABS: ANISOCYTOSIS 1+ (5-10/OIF) (0-5/OIF); MANUAL DIFF NO %; PLATELET ESTIMATE ADQ (ADEQUATE)
[2016-10-27 12:41] LABS: BASOPHILS 0.2 %; BASOPHILS ABSOLUTE 0.03 10/3/uL (0.0-0.16); EOSINOPHILS 1.6 %; EOSINOPHILS ABSOLUTE 0.19 10/3/uL (0.0-0.53); HEMATOCRIT 29.3 % (36.0-48.0); HEMOGLOBIN 9.2 g/dL (12.0-16.0); IMMATURE GRANULOCYTES 0.3 %; IMMATURE GRANULOCYTES ABSOLUTE 0.04 10/3/uL (0.0-0.11); LYMPHOCYTES 10.1 %; LYMPHOCYTES ABSOLUTE 1.21 10/3/uL (0.67-4.30); MANUAL DIFF NO %; MEAN CORPUS HGB CONC 31.4 g/dL (32.0-36.0); MEAN CORPUSCULAR VOLUME 89.3 fL (80-100); MEAN PLATELET VOLUME 9.7 fL (9.2-13.0); MONOCYTES 4.4 %; MONOCYTES ABSOLUTE 0.53 10/3/uL (0.21-1.20); NEUTROPHILS 83.4 %; NEUTROPHILS ABSOLUTE 10.02 10/3/uL (2.02-8.40); PLATELET COUNT 218 10/3/uL (150-400); RBC DISTRIBUTION WIDTH 17.8 % (12.0-16.0); RED CELL COUNT 3.28 10/6/uL (4.0-5.6)
[2016-10-27 13:06] LABS: ALBUMIN 2.1 G/DL (3.5-5.0); BUN (BLOOD UREA NITROGEN) 58 MG/DL (6-23); CALCIUM, SERUM 7.5 MG/DL (8.5-10.4); CHLORIDE, SERUM 99 MMOL/L (96-112); CO2 (CARBON DIOXIDE) 27 MMOL/L (24-34); CREATININE 8.25 MG/DL (0.55-1.02); GFR AFRICAN AMERICAN 6 ML/MIN (>=60); GFR NON AFRICAN AMERICAN 5 ML/MIN (>=60); GLUCOSE, SERUM 140 MG/DL (60-99); PHOSPHORUS, SERUM 3.3 MG/DL (2.5-4.5); POTASSIUM, SERUM 5.7 MMOL/L (3.5-5.3); SODIUM, SERUM 133 MMOL/L (135-148)
[2016-10-28 04:59] LABS: BASOPHILS 0.2 %; BASOPHILS ABSOLUTE 0.02 10/3/uL (0.0-0.16); EOSINOPHILS 1.3 %; EOSINOPHILS ABSOLUTE 0.13 10/3/uL (0.0-0.53); HEMATOCRIT 28.5 % (36.0-48.0); HEMOGLOBIN 8.8 g/dL (12.0-16.0); IMMATURE GRANULOCYTES 0.4 %; IMMATURE GRANULOCYTES ABSOLUTE 0.04 10/3/uL (0.0-0.11); MANUAL DIFF NO %; MEAN CORPUS HGB CONC 30.9 g/dL (32.0-36.0); MEAN CORPUSCULAR HEMOGLOB 28.7 pg (26.0-34.0); MEAN CORPUSCULAR VOLUME 92.8 fL (80-100); MEAN PLATELET VOLUME 9.7 fL (9.2-13.0); MONOCYTES 6.5 %; MONOCYTES ABSOLUTE 0.65 10/3/uL (0.21-1.20); NEUTROPHILS 82.6 %; NEUTROPHILS ABSOLUTE 8.23 10/3/uL (2.02-8.40); PLATELET COUNT 224 10/3/uL (150-400); RBC DISTRIBUTION WIDTH 18.1 % (12.0-16.0); RED CELL COUNT 3.07 10/6/uL (4.0-5.6)
[2016-10-28 05:06] LABS: INTERNATIONAL NORMAL RATI 1.6 UNITS (-); PROTIME (NOT ORD) 18.5 SEC (12.0-14.5)
[2016-10-28 05:14] LABS: ALBUMIN 2.4 G/DL (3.5-5.0); CALCIUM, SERUM 7.7 MG/DL (8.5-10.4); CHLORIDE, SERUM 101 MMOL/L (96-112); CO2 (CARBON DIOXIDE) 28 MMOL/L (24-34); PHOSPHORUS, SERUM 2.9 MG/DL (2.5-4.5); POTASSIUM, SERUM 5.1 MMOL/L (3.5-5.3); SODIUM, SERUM 136 MMOL/L (135-148)
[2016-10-28 05:15] LABS: BUN (BLOOD UREA NITROGEN) 33 MG/DL (6-23); GFR AFRICAN AMERICAN 9 ML/MIN (>=60); GFR NON AFRICAN AMERICAN 8 ML/MIN (>=60); GLUCOSE, SERUM 83 MG/DL (60-99)
[2016-10-29 07:10] LABS: INTERNATIONAL NORMAL RATI 1.7 UNITS (-); PROTIME (NOT ORD) 19.9 SEC (12.0-14.5)
[2016-10-30 13:28] LABS: BASOPHILS 0.2 %; BASOPHILS ABSOLUTE 0.02 10/3/uL (0.0-0.16); EOSINOPHILS 1.7 %; EOSINOPHILS ABSOLUTE 0.14 10/3/uL (0.0-0.53); IMMATURE GRANULOCYTES 0.2 %; IMMATURE GRANULOCYTES ABSOLUTE 0.02 10/3/uL (0.0-0.11); LYMPHOCYTES 11.1 %; LYMPHOCYTES ABSOLUTE 0.92 10/3/uL (0.67-4.30); MEAN CORPUS HGB CONC 31.8 g/dL (32.0-36.0); MEAN CORPUSCULAR HEMOGLOB 28.4 pg (26.0-34.0); MEAN PLATELET VOLUME 9.2 fL (9.2-13.0); MONOCYTES 5.8 %; MONOCYTES ABSOLUTE 0.48 10/3/uL (0.21-1.20); NEUTROPHILS ABSOLUTE 6.69 10/3/uL (2.02-8.40); PLATELET COUNT 225 10/3/uL (150-400); RBC DISTRIBUTION WIDTH 17.8 % (12.0-16.0); WHITE BLOOD CELLS 8.3 10/3/uL (4.5-10.5)
[2016-10-30 13:29] LABS: HEMATOCRIT 21.7 % (36.0-48.0); HEMOGLOBIN 7.2 g/dL (12.0-16.0); MANUAL DIFF NO %; MEAN CORPUSCULAR VOLUME 89.3 fL (80-100); RED CELL COUNT 2.43 10/6/uL (4.0-5.6)
[2016-10-30 13:41] LABS: CALCIUM, SERUM 8.2 MG/DL (8.5-10.4); CHLORIDE, SERUM 100 MMOL/L (96-112); CO2 (CARBON DIOXIDE) 28 MMOL/L (24-34); GFR AFRICAN AMERICAN 5 ML/MIN (>=60); GFR NON AFRICAN AMERICAN 5 ML/MIN (>=60); GLUCOSE, SERUM 99 MG/DL (60-99); PHOSPHORUS, SERUM 3.7 MG/DL (2.5-4.5); POTASSIUM, SERUM 5.6 MMOL/L (3.5-5.3); SODIUM, SERUM 135 MMOL/L (135-148)
[2016-10-30 13:42] LABS: BUN (BLOOD UREA NITROGEN) 69 MG/DL (6-23); CREATININE 8.95 MG/DL (0.55-1.02)
[2016-10-30 13:53] LABS: INTERNATIONAL NORMAL RATI 1.9 UNITS (-); PROTIME (NOT ORD) 21.3 SEC (12.0-14.5)
[2016-10-31 06:22] LABS: INTERNATIONAL NORMAL RATI 2.2 UNITS (-)
[2016-10-31 06:37] LABS: ALBUMIN 2.1 G/DL (3.5-5.0); CALCIUM, SERUM 8.2 MG/DL (8.5-10.4); CHLORIDE, SERUM 102 MMOL/L (96-112); CO2 (CARBON DIOXIDE) 31 MMOL/L (24-34); GLUCOSE, SERUM 116 MG/DL (60-99); POTASSIUM, SERUM 5.2 MMOL/L (3.5-5.3); SODIUM, SERUM 137 MMOL/L (135-148)
[2016-10-31 06:38] LABS: BUN (BLOOD UREA NITROGEN) 44 MG/DL (6-23); CREATININE 6.47 MG/DL (0.55-1.02); GFR AFRICAN AMERICAN 8 ML/MIN (>=60); GFR NON AFRICAN AMERICAN 7 ML/MIN (>=60); HEMOGLOBIN 7.4 g/dL (12.0-16.0); MEAN CORPUS HGB CONC 30.7 g/dL (32.0-36.0); MEAN CORPUSCULAR HEMOGLOB 28.6 pg (26.0-34.0); MEAN PLATELET VOLUME 9.4 fL (9.2-13.0); PHOSPHORUS, SERUM 2.7 MG/DL (2.5-4.5); RED CELL COUNT 2.59 10/6/uL (4.0-5.6); WHITE BLOOD CELLS 9.3 10/3/uL (4.5-10.5)
[2016-10-31 06:45] LABS: HEMATOCRIT 24.1 % (36.0-48.0); MANUAL DIFF YES %; MEAN CORPUSCULAR VOLUME 93.1 fL (80-100); PLATELET COUNT 304 10/3/uL (150-400)
[2016-10-31 08:08] LABS: ANISOCYTOSIS 1+ (5-10/OIF) (0-5/OIF); BAND NEUTROPHILS 3 %; LYMPHOCYTES 9 %; LYMPHOCYTES ABSOLUTE (CALC) 0.84 10/3/uL (0.67-4.30); MACROCYTES 1+ (5-10/OIF) (0-5/OIF); MONOCYTES 4 %; MONOCYTES ABSOLUTE (CALC) 0.37 10/3/uL (0.21-1.20); NEUTROPHILS ABSOLUTE (CALC) 8.09 10/3/uL (2.02-8.40); PLATELET ESTIMATE ADQ (ADEQUATE); SEGMENTED NEUTROPHIL (0) 84 %; TOTAL NUCLEATED CELLS 100
[2016-11-01 06:09] LABS: BASOPHILS 0.4 %; BASOPHILS ABSOLUTE 0.04 10/3/uL (0.0-0.16); EOSINOPHILS 1.9 %; EOSINOPHILS ABSOLUTE 0.19 10/3/uL (0.0-0.53); HEMATOCRIT 21.9 % (36.0-48.0); IMMATURE GRANULOCYTES 0.2 %; IMMATURE GRANULOCYTES ABSOLUTE 0.02 10/3/uL (0.0-0.11); LYMPHOCYTES 12.7 %; LYMPHOCYTES ABSOLUTE 1.26 10/3/uL (0.67-4.30); MEAN CORPUS HGB CONC 31.1 g/dL (32.0-36.0); MEAN CORPUSCULAR HEMOGLOB 28.5 pg (26.0-34.0); MEAN CORPUSCULAR VOLUME 91.6 fL (80-100); MEAN PLATELET VOLUME 8.9 fL (9.2-13.0); MONOCYTES 6.4 %; MONOCYTES ABSOLUTE 0.64 10/3/uL (0.21-1.20); NEUTROPHILS 78.4 %; PLATELET COUNT 344 10/3/uL (150-400); RBC DISTRIBUTION WIDTH 17.8 % (12.0-16.0); RED CELL COUNT 2.39 10/6/uL (4.0-5.6)
[2016-11-01 06:12] LABS: INTERNATIONAL NORMAL RATI 2.5 UNITS (-); PROTIME (NOT ORD) 26.6 SEC (12.0-14.5)
[2016-11-01 06:13] LABS: HEMOGLOBIN 6.8 g/dL (12.0-16.0)
[2016-11-01 06:14] LABS: MANUAL DIFF NO %
[2016-11-01 06:19] LABS: CALCIUM, SERUM 8.1 MG/DL (8.5-10.4); CHLORIDE, SERUM 102 MMOL/L (96-112); PHOSPHORUS, SERUM 3.1 MG/DL (2.5-4.5); POTASSIUM, SERUM 5.9 MMOL/L (3.5-5.3); SODIUM, SERUM 138 MMOL/L (135-148)
[2016-11-01 06:24] LABS: CO2 (CARBON DIOXIDE) 26 MMOL/L (24-34)
[2016-11-01 06:25] LABS: BUN (BLOOD UREA NITROGEN) 61 MG/DL (6-23); GFR AFRICAN AMERICAN 6 ML/MIN (>=60); GFR NON AFRICAN AMERICAN 5 ML/MIN (>=60); GLUCOSE, SERUM 82 MG/DL (60-99)
[2016-11-01 11:34] LABS: FOLATE 32.5 NG/ML (>5.2); IRON, SERUM 21 MCG/DL (35-150)
[2016-11-02 07:36] LABS: INTERNATIONAL NORMAL RATI 2.4 UNITS (-); PROTIME (NOT ORD) 26.3 SEC (12.0-14.5)
[2016-11-02 07:38] LABS: BASOPHILS 0.4 %; BASOPHILS ABSOLUTE 0.04 10/3/uL (0.0-0.16); EOSINOPHILS 1.4 %; EOSINOPHILS ABSOLUTE 0.14 10/3/uL (0.0-0.53); IMMATURE GRANULOCYTES 0.3 %; IMMATURE GRANULOCYTES ABSOLUTE 0.03 10/3/uL (0.0-0.11); LYMPHOCYTES 14.8 %; LYMPHOCYTES ABSOLUTE 1.44 10/3/uL (0.67-4.30); MEAN CORPUS HGB CONC 31.2 g/dL (32.0-36.0); MEAN CORPUSCULAR HEMOGLOB 28.7 pg (26.0-34.0); MEAN CORPUSCULAR VOLUME 92.2 fL (80-100); MEAN PLATELET VOLUME 8.6 fL (9.2-13.0); MONOCYTES 6.7 %; MONOCYTES ABSOLUTE 0.65 10/3/uL (0.21-1.20); NEUTROPHILS 76.4 %; NEUTROPHILS ABSOLUTE 7.45 10/3/uL (2.02-8.40); PLATELET COUNT 290 10/3/uL (150-400); RBC DISTRIBUTION WIDTH 18.3 % (12.0-16.0); WHITE BLOOD CELLS 9.8 10/3/uL (4.5-10.5)
[2016-11-02 07:39] LABS: HEMATOCRIT 15.4 % (36.0-48.0); HEMOGLOBIN 4.8 g/dL (12.0-16.0); RED CELL COUNT 1.67 10/6/uL (4.0-5.6)
[2016-11-02 07:42] LABS: MANUAL DIFF NO %
[2016-11-02 07:44] LABS: ALBUMIN 2.1 G/DL (3.5-5.0); BUN (BLOOD UREA NITROGEN) 38 MG/DL (6-23); CHLORIDE, SERUM 107 MMOL/L (96-112); CO2 (CARBON DIOXIDE) 27 MMOL/L (24-34); CREATININE 5.71 MG/DL (0.55-1.02); GFR AFRICAN AMERICAN 9 ML/MIN (>=60); GFR NON AFRICAN AMERICAN 8 ML/MIN (>=60); GLUCOSE, SERUM 138 MG/DL (60-99); PHOSPHORUS, SERUM 2.4 MG/DL (2.5-4.5); POTASSIUM, SERUM 5.4 MMOL/L (3.5-5.3); SODIUM, SERUM 142 MMOL/L (135-148)
[2016-11-03 07:03] LABS: INTERNATIONAL NORMAL RATI 1.3 UNITS (-)
[2016-11-03 07:04] LABS: PROTIME (NOT ORD) 16.4 SEC (12.0-14.5)
[2016-11-03 07:07] LABS: BASOPHILS 0.3 %; BASOPHILS ABSOLUTE 0.04 10/3/uL (0.0-0.16); EOSINOPHILS 1.8 %; EOSINOPHILS ABSOLUTE 0.22 10/3/uL (0.0-0.53); IMMATURE GRANULOCYTES 0.5 %; IMMATURE GRANULOCYTES ABSOLUTE 0.06 10/3/uL (0.0-0.11); LYMPHOCYTES 13.8 %; LYMPHOCYTES ABSOLUTE 1.71 10/3/uL (0.67-4.30); MEAN CORPUSCULAR HEMOGLOB 29.7 pg (26.0-34.0); MEAN CORPUSCULAR VOLUME 90.5 fL (80-100); MEAN PLATELET VOLUME 8.5 fL (9.2-13.0); MONOCYTES 6.8 %; MONOCYTES ABSOLUTE 0.84 10/3/uL (0.21-1.20); NEUTROPHILS 76.8 %; NEUTROPHILS ABSOLUTE 9.53 10/3/uL (2.02-8.40); PLATELET COUNT 267 10/3/uL (150-400); RBC DISTRIBUTION WIDTH 18.2 % (12.0-16.0); RED CELL COUNT 1.48 10/6/uL (4.0-5.6); WHITE BLOOD CELLS 12.4 10/3/uL (4.5-10.5)
[2016-11-03 07:17] LABS: ALBUMIN 2.2 G/DL (3.5-5.0); BUN (BLOOD UREA NITROGEN) 50 MG/DL (6-23); CHLORIDE, SERUM 102 MMOL/L (96-112); CO2 (CARBON DIOXIDE) 29 MMOL/L (24-34); CREATININE 7.07 MG/DL (0.55-1.02); GFR AFRICAN AMERICAN 7 ML/MIN (>=60); GFR NON AFRICAN AMERICAN 6 ML/MIN (>=60); GLUCOSE, SERUM 96 MG/DL (60-99); PHOSPHORUS, SERUM 2.4 MG/DL (2.5-4.5); POTASSIUM, SERUM 5.3 MMOL/L (3.5-5.3); SODIUM, SERUM 138 MMOL/L (135-148)
[2016-11-03 07:23] LABS: HEMATOCRIT 13.4 % (36.0-48.0); HEMOGLOBIN 4.4 g/dL (12.0-16.0); MANUAL DIFF NO %; MEAN CORPUS HGB CONC 32.8 g/dL (32.0-36.0)
[2016-11-03 14:26] LABS: BASOPHILS 0.3 %; BASOPHILS ABSOLUTE 0.04 10/3/uL (0.0-0.16); EOSINOPHILS 1.8 %; EOSINOPHILS ABSOLUTE 0.23 10/3/uL (0.0-0.53); IMMATURE GRANULOCYTES 0.5 %; IMMATURE GRANULOCYTES ABSOLUTE 0.07 10/3/uL (0.0-0.11); LYMPHOCYTES 11.4 %; LYMPHOCYTES ABSOLUTE 1.47 10/3/uL (0.67-4.30); MEAN CORPUSCULAR HEMOGLOB 28.1 pg (26.0-34.0); MEAN CORPUSCULAR VOLUME 91.4 fL (80-100); MEAN PLATELET VOLUME 8.5 fL (9.2-13.0); MONOCYTES 7.2 %; MONOCYTES ABSOLUTE 0.93 10/3/uL (0.21-1.20); NEUTROPHILS 78.8 %; NEUTROPHILS ABSOLUTE 10.14 10/3/uL (2.02-8.40); PLATELET COUNT 316 10/3/uL (150-400); RED CELL COUNT 1.39 10/6/uL (4.0-5.6); WHITE BLOOD CELLS 12.9 10/3/uL (4.5-10.5)
[2016-11-03 14:27] LABS: HEMATOCRIT 12.7 % (36.0-48.0); HEMOGLOBIN 3.9 g/dL (12.0-16.0); MANUAL DIFF NO %; MEAN CORPUS HGB CONC 30.7 g/dL (32.0-36.0)
[2016-11-03 14:48] LABS: BUN (BLOOD UREA NITROGEN) 30 MG/DL (6-23); CHLORIDE, SERUM 105 MMOL/L (96-112); CO2 (CARBON DIOXIDE) 32 MMOL/L (24-34); CREATININE 4.12 MG/DL (0.55-1.02); GFR AFRICAN AMERICAN 14 ML/MIN (>=60); GFR NON AFRICAN AMERICAN 12 ML/MIN (>=60); GLUCOSE, SERUM 199 MG/DL (60-99); POTASSIUM, SERUM 4.2 MMOL/L (3.5-5.3); SODIUM, SERUM 140 MMOL/L (135-148)
[2016-11-04 07:14] LABS: INTERNATIONAL NORMAL RATI 1.3 UNITS (-); PROTIME (NOT ORD) 15.6 SEC (12.0-14.5)
[2016-11-06 08:39] LABS: BASOPHILS 0.4 %; BASOPHILS ABSOLUTE 0.04 10/3/uL (0.0-0.16); EOSINOPHILS 1.9 %; EOSINOPHILS ABSOLUTE 0.21 10/3/uL (0.0-0.53); IMMATURE GRANULOCYTES 0.5 %; IMMATURE GRANULOCYTES ABSOLUTE 0.06 10/3/uL (0.0-0.11); LYMPHOCYTES ABSOLUTE 1.33 10/3/uL (0.67-4.30); MEAN CORPUS HGB CONC 31.8 g/dL (32.0-36.0); MEAN CORPUSCULAR HEMOGLOB 30.4 pg (26.0-34.0); MEAN PLATELET VOLUME 8.5 fL (9.2-13.0); MONOCYTES 5.9 %; MONOCYTES ABSOLUTE 0.65 10/3/uL (0.21-1.20); NEUTROPHILS 79.3 %; NEUTROPHILS ABSOLUTE 8.77 10/3/uL (2.02-8.40); PLATELET COUNT 308 10/3/uL (150-400); RBC DISTRIBUTION WIDTH 19.5 % (12.0-16.0); RED CELL COUNT 1.38 10/6/uL (4.0-5.6); WHITE BLOOD CELLS 11.1 10/3/uL (4.5-10.5)
[2016-11-06 08:41] LABS: HEMATOCRIT 13.2 % (36.0-48.0); HEMOGLOBIN 4.2 g/dL (12.0-16.0); MEAN CORPUSCULAR VOLUME 95.7 fL (80-100)
[2016-11-06 08:44] LABS: MANUAL DIFF NO %
[2016-11-06 08:53] LABS: ALBUMIN 2.1 G/DL (3.5-5.0); CALCIUM, SERUM 8.1 MG/DL (8.5-10.4); CHLORIDE, SERUM 105 MMOL/L (96-112); CO2 (CARBON DIOXIDE) 28 MMOL/L (24-34); PHOSPHORUS, SERUM 2.5 MG/DL (2.5-4.5); SODIUM, SERUM 140 MMOL/L (135-148)
[2016-11-06 08:54] LABS: BUN (BLOOD UREA NITROGEN) 39 MG/DL (6-23); CREATININE 8.13 MG/DL (0.55-1.02); GFR AFRICAN AMERICAN 6 ML/MIN (>=60); GFR NON AFRICAN AMERICAN 5 ML/MIN (>=60); GLUCOSE, SERUM 126 MG/DL (60-99); POTASSIUM, SERUM 5.3 MMOL/L (3.5-5.3)
[2016-11-06 09:27] LABS: INTERNATIONAL NORMAL RATI 1.1 UNITS (-); PROTIME (NOT ORD) 14.5 SEC (12.0-14.5)
[2016-11-07 07:51] LABS: INTERNATIONAL NORMAL RATI 1.1 UNITS (-); PROTIME (NOT ORD) 14.4 SEC (12.0-14.5)
[2016-11-08 05:42] LABS: BASOPHILS 0.5 %; BASOPHILS ABSOLUTE 0.06 10/3/uL (0.0-0.16); EOSINOPHILS 2.3 %; EOSINOPHILS ABSOLUTE 0.25 10/3/uL (0.0-0.53); HEMOGLOBIN 4.8 g/dL (12.0-16.0); IMMATURE GRANULOCYTES 0.5 %; IMMATURE GRANULOCYTES ABSOLUTE 0.06 10/3/uL (0.0-0.11); LYMPHOCYTES 13.2 %; LYMPHOCYTES ABSOLUTE 1.45 10/3/uL (0.67-4.30); MEAN CORPUSCULAR HEMOGLOB 29.1 pg (26.0-34.0); MEAN CORPUSCULAR VOLUME 98.2 fL (80-100); MEAN PLATELET VOLUME 8.8 fL (9.2-13.0); MONOCYTES 5.5 %; MONOCYTES ABSOLUTE 0.61 10/3/uL (0.21-1.20); NEUTROPHILS ABSOLUTE 8.57 10/3/uL (2.02-8.40); PLATELET COUNT 370 10/3/uL (150-400); RBC DISTRIBUTION WIDTH 21.3 % (12.0-16.0); RED CELL COUNT 1.65 10/6/uL (4.0-5.6)
[2016-11-08 05:43] LABS: HEMATOCRIT 16.2 % (36.0-48.0); MANUAL DIFF NO %; MEAN CORPUS HGB CONC 29.6 g/dL (32.0-36.0)
[2016-11-08 05:52] LABS: INTERNATIONAL NORMAL RATI 1.1 UNITS (-); PROTIME (NOT ORD) 13.8 SEC (12.0-14.5)
[2016-11-08 05:59] LABS: ALBUMIN 2.2 G/DL (3.5-5.0); BUN (BLOOD UREA NITROGEN) 37 MG/DL (6-23); CALCIUM, SERUM 8.4 MG/DL (8.5-10.4); CHLORIDE, SERUM 103 MMOL/L (96-112); CO2 (CARBON DIOXIDE) 27 MMOL/L (24-34); CREATININE 7.65 MG/DL (0.55-1.02); GFR AFRICAN AMERICAN 7 ML/MIN (>=60); GFR NON AFRICAN AMERICAN 6 ML/MIN (>=60); POTASSIUM, SERUM 5.2 MMOL/L (3.5-5.3); SODIUM, SERUM 138 MMOL/L (135-148)
[2016-11-08 06:00] LABS: GLUCOSE, SERUM 81 MG/DL (60-99); PHOSPHORUS, SERUM 4.3 MG/DL (2.5-4.5)
[2016-11-09 06:22] LABS: INTERNATIONAL NORMAL RATI 1.1 UNITS (-); PROTIME (NOT ORD) 14.5 SEC (12.0-14.5)
== END 2016-11-09 16:31 | DRG 570 ==
LOC: ER 05:18 → 1SO 07:52
PROVIDERS: Hospitalist; Internal Medicine Gastroenterology; Internal Medicine Nephrology; Nurse Anesthetist, Certified Registered; Nurse Practitioner; Nurse Practitioner Acute Care; Registered Nurse; Specialist
PROC: 5A1D60Z (ICD-10-PCS; 2016-10-23)
PROC: 0JBC0ZZ Excision of Pelvic Region Subcutaneous Tissue and Fascia, Open Approach (ICD-10-PCS; 2016-10-26)
PROC: 0JB80ZZ Excision of Abdomen Subcutaneous Tissue and Fascia, Open Approach (ICD-10-PCS; 2016-10-26)
PROC: 0JBB0ZZ Excision of Perineum Subcutaneous Tissue and Fascia, Open Approach (ICD-10-PCS; 2016-10-26)
PROC: 0JB90ZZ Excision of Buttock Subcutaneous Tissue and Fascia, Open Approach (ICD-10-PCS; principal; 2016-10-26 15:45)
PROC: 0DB98ZX Excision of Duodenum, Via Natural or Artificial Opening Endoscopic, Diagnostic (ICD-10-PCS; 2016-11-04)
PROC: 0DBH8ZX Excision of Cecum, Via Natural or Artificial Opening Endoscopic, Diagnostic (ICD-10-PCS; 2016-11-04 09:00)
DX: L02.31 Cutaneous abscess of buttock (principal); N18.6 End stage renal disease; I12.0 Hypertensive chronic kidney disease with stage 5 chronic kidney disease or end stage renal disease; D68.9 Coagulation defect, unspecified; D62 Acute posthemorrhagic anemia; K61.0 Anal abscess; L02.215 Cutaneous abscess of perineum; E11.22 Type 2 diabetes mellitus with diabetic chronic kidney disease; I48.91 Unspecified atrial fibrillation; L73.2 Hidradenitis suppurativa; Z99.2 Dependence on renal dialysis; I73.9 Peripheral vascular disease, unspecified; J44.9 Chronic obstructive pulmonary disease, unspecified; D12.0 Benign neoplasm of cecum; H54.0 Blindness, both eyes; K44.9 Diaphragmatic hernia without obstruction or gangrene; K29.70 Gastritis, unspecified, without bleeding; K62.1 Rectal polyp; K31.7 Polyp of stomach and duodenum; K64.0 First degree hemorrhoids; F41.9 Anxiety disorder, unspecified; K29.80 Duodenitis without bleeding; E11.319 Type 2 diabetes mellitus with unspecified diabetic retinopathy without macular edema; G47.33 Obstructive sleep apnea (adult) (pediatric); I25.10 Atherosclerotic heart disease of native coronary artery without angina pectoris; Z79.01 Long term (current) use of anticoagulants; Z79.899 Other long term (current) drug therapy; Z88.5 Allergy status to narcotic agent; Z88.8 Allergy status to other drugs, medicaments and biological substances; Z91.013 Allergy to seafood; Z91.81 History of falling
CPT/HCPCS: 72193; 80048; 80053; 80069; 80074; 80202; 82248; 82272; 82607; 82746; 82962; 83540; 83605; 83735; 84134; 84145; 84703; 85025; 85610; 85730; 87015; 87040; 87070; 87075; 87102; 87116; 87205; 87389; 88304; 88305; 93005; 96374; 97110-GP; 97116-GP; 97163-GP; 97530-GP; 99285; A9270-GY; G0257; G8978-CK-GP; G8979-CJ-GP; J0885; J1170; J2370; J2405; J2710; J2916; J3010; J3370; P9047; Q9967